=== PATIENT | male | born 1995 | race Caucasian/White ===

== ENCOUNTER 2018-04-18 18:30 | Emergency (ER) | payer SELFPAY ==
[2018-04-18 18:46] VITALS: BP 116/78; PULSE 87; RESP 16; TEMP 36.7; O2SAT 97
--- NOTE | 2018-04-18 19:10 | W.ED.GENAD ---
Discharge Plan Disposition Patient Disposition: HOME Condition: Stable Discharge Details Chief Complaint: Orthopedic Clinical Impression: Sprain of left shoulder Primary Care Provider: Alexander Lozano ED Provider: Brian Molina Home Meds and New Rx's Prescriptions: Continued epinephrine 0.3 MG/SYR auto-injector 0.3 mg IJ PRN PRNQty: 1 RF: 0 Discontinued cephalexin 500 MG capsule 500 mg PO QID 5 Days RF: 0 Discharge Instructions Instructions: Shoulder Sprain (ED), Shoulder Pain (ED) Additional Instructions: Please take 600 mg of ibuprofen with 650 of Tylenol every 6 hours as needed for discomfort. You may continue to use ice for 20 minutes on and at least 20 minutes off for the next 48 hours and slowly advance activity as tolerated by discomfort. If not improving over the next 2-4 weeks please call orthopedic office for arrangement of follow-up appointment Referrals: Mike Angulo MD [ [facility] STAFF PHYSICIAN] - Dagoberto Lisa MD [ [facility] STAFF PHYSICIAN] - Bakari Krishna MD [ [facility] STAFF PHYSICIAN] - Discharge Data Discharge Date/Time-TO BE ENTERED AT DEPARTURE: 04/18/18 19:28 Medical Decision Making Patient presenting to the emergency department for chief complaint of left shoulder pain. Patient states that he has been performing strenuous activities at work but today when he was going to lean under a vehicle and look at it he placed some weight on his arm and felt a pulling sensation in his shoulder. Patient states after this he had significant continued pain to his shoulder. Patient denies take any pain medication prior to arrival. Physical exam shows deltoid bursa and anterior shoulder tenderness with full range of motion. Patient does have elicited pain with overhead extension and posterior movement of the shoulder otherwise unremarkable exam. Concern for shoulder sprain. Given full range of motion of shoulder I do not feel that radiological imaging is needed or warranted at this time. Patient was encouraged to use ice, Tylenol Motrin, and rest the extremity with increased use of the extremity as tolerated by pain. Patient informed to call orthopedist in the next 2-4 weeks if not improving. After discussion of diagnosis and plan of care patient has no further needs, questions, or concerns and states clear understanding to return to the emergency department for any worsening symptoms. HPI General Mode of arrival: ambulatory. Date/Time Provider Initiated Documentation: 04/18/18 18:56. Limitations to Documentation: no limitations. Information obtained by: patient. History of Present Illness 22 year old M presents to the emergency department with the chief complaint of left shoulder pain, described as moderate, with intensity rated at 8. Quality is described as sharp, and is localized to the left and upper extremity. Patient started experiencing this hour(s) (2) and it has been constant. Movement worsens symptoms . Patient notes no other symptoms.. Patient did receive the following treatments prior to arrival, none Related Data Home Medications Medication Instructions Recorded Confirmed epinephrine 0.3 mg IJ PRN PRN #1 kit 03/29/15 03/09/17 Previous Rx's Medication Instructions Recorded epinephrine 0.3 mg IJ PRN PRN #1 kit 03/29/15 Allergies Allergy/AdvReac Type Severity Reaction Status Date / Time peanut Allergy Intermediate Hives Unverified 03/09/17 20:36 General Stated Complaint: Orthopedic ROSHAN: 4 Review of Systems Cardiovascular Denies syncope Musculoskeletal Reports as per HPI, Denies numbness and Denies tingling Integumentary/Breasts Denies rash, Denies sores and Denies wounds Neurologic Denies syncope, Denies numbness and Denies tingling PFSH Family History Mother Nephritis Urolithiasis Social History Smoking and Tabacco status: Current every day Exam Const General: cooperative and no acute distress Orientation: alert, awake and oriented x3 Resp Effort & Inspection: normal respiratory effort and able to speak in complete sentences Cardio Rate: regular rate Rhythm: regular rhythm Extrem Left upper extremity: normal capillary refill, shoulder/upper arm Details: tenderness Location: over the deltoid bursa, axillary nerve sensory function normal and abnormal ROM Details: pain with active ROM (Over the head and posterior extension) and with range as follows (Full range of motion); no ecchymosis, no crepitus and no deformity, elbow/forearm Details: normal to inspection and normal ROM; no tenderness, wrist Details: normal to inspection and normal ROM; no tenderness and hand Details: normal to inspection, normal capillary refill, neuromotor exam normal, neurosensory exam normal and tendon exam normal; no tenderness Course Vital Signs Temperature 36.7 C 04/18/18 18:46 Pulse 87 04/18/18 18:46 Respiratory Rate 16 04/18/18 18:46 Blood Pressure 116/78 04/18/18 18:46 Pulse Oximetry 97 04/18/18 18:46 Temperature 36.7 C 04/18/18 18:46 Temperature Source Temporal Artery Scan 04/18/18 18:46 Pulse 87 04/18/18 18:46 Respiratory Rate 16 04/18/18 18:46 Respiratory Effort 04/18/18 18:52 Blood Pressure 116/78 04/18/18 18:46 Blood Pressure Position Sitting 04/18/18 18:46 Pulse Oximetry 97 04/18/18 18:46 Oxygen Delivery Method Room Air 04/18/18 18:46 Oxygen Flow Rate 0 04/18/18 18:46 Pain Level 8 04/18/18 18:46
[2018-04-18] MEDS: Acetaminophen 325 MG TAB 650 MG PO (19:14)
[2018-04-18] MEDS: Ibuprofen 600 MG TAB PO (19:14)
== END 2018-04-18 19:28 | disposition home or self-care (01) ==
PROVIDERS: Emergency Provider Nurse Practitioner Family; PCP Pediatrics
DX: S93.402A Sprain of unspecified ligament of left ankle, initial encounter (principal); X50.1XXA Overexertion from prolonged static or awkward postures, initial encounter; Y99.0 Civilian activity done for income or pay
CPT/HCPCS: 99282

== ENCOUNTER 2018-07-09 21:19 | Emergency (ER) | payer SELFPAY ==
[2018-07-09 21:23] VITALS: BP 111/60; PULSE 82; RESP 18; TEMP 36.5; O2SAT 100
--- NOTE | 2018-07-09 21:38 | ED.GENADUL_ITS ---
Discharge Plan Disposition Patient Disposition: HOME Condition: Good Discharge Details Chief Complaint: Chest Pain Clinical Impression: Anxiety attack Primary Care Provider: None,None ED Provider: Daniel Martinez Meds and New Rx's Prescriptions: Continued epinephrine 0.3 MG/SYR auto-injector 0.3 mg IJ PRN PRNQty: 1 RF: 0 Discharge Instructions Instructions: Anxiety (ED) Additional Instructions: Your EKG, laboratory studies, x-rays are all normal. Suspect this was all related to anxiety. You should avoid illicit drugs in the future. Follow up with PCP which we help arrange. Return to ED for fever, shortness of breath, worse pain. Referrals: Care Management [Provider Group] Discharge Data Discharge Date/Time-TO BE ENTERED AT DEPARTURE: 07/10/18 02:17 Medical Decision Making Patient presenting with chest pain or shortness of breath. Suspect this is all anxiety related. Denies cocaine use recently. Thought he was using cocaine a couple days ago but found out it was bath salts. EKG is normal. Vital signs are normal. Patient is PERC negative. IV established and laboratory studies sent. Vistaril given orally for anxiety. Patient doing much better after the Vistaril. Chest x-ray is unremarkable. Labs are unremarkable other than low potassium which is replaced. First troponin negative. HEART score of one. Second troponin remains negative. Patient has been fine since the Vistaril. He does not have primary care. We will have care management work on helping him establish primary care. Return to ED for altered mental status, no worsening chest pain, worsening shortness of breath, other concerns. Lab Data Lab results reviewed: Yes I reviewed the patient's lab results. ECG Data Attestation: I personally reviewed and interpreted this ECG (s) as follows: Interpretation: Sinus rhythm at 76. Normal intervals and axis. No acute ST changes noted. HPI General Mode of arrival: ambulatory . Date/Time Provider Initiated Documentation: 07/09/18 21:26 . Limitations to Documentation: no limitations . Information obtained by: patient and RN notes reviewed . HPI Narrative: Patient presents to ED with complaint of chest pain or shortness of breath. Symptoms started about half hour prior to arrival. He is anxious. He has not had this previously. He denies drug use other than marijuana. He did use bath salts a couple days ago thinking it was cocaine but he has not actually used cocaine in a long time. He does report a history of anxiety and self medicates with marijuana. He denies fevers or cough. He denies abdominal pain or vomiting. He describes the chest pain as pressure. He is feeling a little lightheaded and tingly. Related Data Home Medications Medication Instructions Recorded Confirmed epinephrine 0.3 mg IJ PRN PRN #1 kit 03/29/15 03/09/17 Previous Rx's Medication Instructions Recorded epinephrine 0.3 mg IJ PRN PRN #1 kit 03/29/15 Allergies Allergy/AdvReac Type Severity Reaction Status Date / Time peanut Allergy Intermediate Hives Unverified 03/09/17 20:36 General Stated Complaint: Chest Pain ROSHAN: 2 Review of Systems Review of Systems 12/14 Review of Systems completed and is negative except as stated above in HPI (Systems reviewed: Const, Eyes, ENT, Resp, CV, GI, , MSK, Skin, Neuro) PFSH Surgical History S/P appendectomy (Inactive) Social History Smoking/Tobacco Use Status: Current every day Drug use: Daily Do you feel safe in your relationship?: Yes Exam Narrative Exam Narrative: Vitals: Normal. Const: WDWN male in NAD but anxious. HEENT: NC/AT. Normal facial exam. Eyes: Normal conjunctiva and sclera. Neck: Supple. Trachea midline. Lungs: Normal respiratory effort. Lungs are clear. Cor: RRR without murmur/gallop. Good radial pulses. GI: Soft. NT/ND. No guarding or rebound. Neuro: A+O x 3. CN grossly in tact. Good strength and no focal deficit. Ext: No C/C/E. No deformity or tenderness. No calf tenderness. Skin: Warm and dry without rash. Course Vital Signs Temperature 97.7 F 07/09/18 21:23 Pulse 82 07/09/18 21:23 Respiratory Rate 18 07/09/18 21:23 Blood Pressure 111/60 07/09/18 21:23 Pulse Oximetry 100 07/09/18 21:23 Temperature 97.7 F 07/09/18 21:23 Temperature Source Skin 07/09/18 21:23 Pulse 82 07/09/18 21:23 Respiratory Rate 18 07/09/18 21:23 Blood Pressure 111/60 07/09/18 21:23 Blood Pressure Position Supine 07/09/18 21:23 Pulse Oximetry 100 07/09/18 21:23 Oxygen Delivery Method Room Air 07/09/18 21:23 Oxygen Flow Rate 0 07/09/18 21:23 Pain Level 5 07/09/18 21:23
[2018-07-09 21:55] LABS: Abs Immature Grans 0.01 k/cumm (0.0-0.09); Absolute Basophil Count 0.02 k/cumm (0.0-0.2); Absolute Eosinophil Count 0.15 k/cumm (0.0-0.7); Absolute Lymphocyte Count 4.11 k/cumm (1.2-3.4); Absolute Monocyte Count 0.86 k/cumm (0.11-0.7); Basophils % 0.2; Eosinophils % 1.9; HCT 42.4 % (40.0-50.0); HGB 14.5 g/dL (13.5-17.5); Immature Grans % 0.1; Lymphocytes % 51.1; Mean Corp. HGB Concentration 34.2 g/dL (32.0-36.0); Mean Corpuscular Hemoglobin 32.8 pg (27.0-33.0); Mean Corpuscular Volume 95.9 fL (80-95); Mean Platelet Volume 9.2 fL (8.0-11.0); Monocytes % 10.7; Platelet Count 223 x1000/uL (130-400); RBC 4.42 m/cumm (4.50-6.00); RBC Distribution Width 12.7 % (11.8-14.1); White Blood Cell Count 8.05 k/cumm (4.4-10.8)
--- NOTE | 2018-07-09 22:00 | DI.RAD_ITS ---
SYMPTOM/DIAGNOSIS: CHEST PAIN PA AND LATERAL CHEST: 07/09 There is a mild bi-convex thoracolumbar scoliosis. The heart is not enlarged. The lungs are clear and well expanded. No pleural effusion seen. CONCLUSION: No evidence of acute disease.
--- NOTE | 2018-07-09 22:15 | DI.VRAD_ITS ---
EXAM: XR Chest, 2 Views EXAM DATE/TIME: 07/09/2018 9:46 PM CLINICAL HISTORY: 23 years old, male; Chest pain TECHNIQUE: Imaging protocol: XR of the chest, 2 views. COMPARISON: CR CHEST ONE VIEW IN RAD DEPT 07/29/2013 6:46 PM FINDINGS: Lungs: Unremarkable. No consolidation. Pleural space: Unremarkable. No evidence of pneumothorax. Heart/Mediastinum: Unremarkable. Heart size within normal limits for technique. Bones/joints: Unremarkable. IMPRESSION: No acute findings. Dictated and Authenticated by: Pb Petersen MD. Ordering:ARIE Sanchez MD
[2018-07-09] MEDS: hydrOXYzine PAMOATE 25 MG CAP PO (22:16)
[2018-07-09 22:20] LABS: ALT 25 U/L (12-78); AST 19 U/L (15-37); Albumin 3.8 g/dL (3.4-5.0); Alkaline Phosphatase 63 U/L (46-116); Anion Gap 11.6 mmol/L (3-11); BUN 16 mg/dL (7-18); Bilirubin, Total 0.9 mg/dL (0.2-1.0); CO2 26.4 mmol/L (21.0-32.0); CREATININE 1.17 mg/dL (0.70-1.30); Chloride 99 mmol/L (98-107); Glucose 134 mg/dL (70-100); Potassium 3.1 mmol/L (3.5-5.1); Sodium 137 mmol/L (136-145); Total Protein 7.3 g/dL (6.4-8.2)
[2018-07-09 22:29] LABS: Troponin I < 0.02 ng/mL (0.00-0.06)
[2018-07-09] MEDS: Potassium Chloride 20 MEQ TABCR 40 MEQ PO (23:37)
[2018-07-10] VITALS (10 sets, daily range): BP systolic 104; BP diastolic 65; PULSE 58–75; RESP 14–18; O2SAT 97–99
[2018-07-10 01:07] LABS: Troponin I < 0.02 ng/mL (0.00-0.06)
--- NOTE | 2018-07-10 08:14 | PDOC.ERCMPRO ---
Care Management Progress Note 07/10-Dr. Martinez requested assistance with helping Harjit with a PCP. Patient used to see [facility]. Dr. Barrientos overhead distribution engineer. Referral faxed to [facility] this am.
--- NOTE | 2018-07-10 08:15 | CMPROGNOTE_ITS ---
Care Management Progress Note 07/10-Dr. Martinez requested assistance with helping Harjit with a PCP. Patient used to see [facility]. Dr. Barrientos senior information security analyst. Referral faxed to [facility] this am.
== END 2018-07-10 02:17 | disposition home or self-care (01) ==
PROVIDERS: Emergency Provider Emergency Medicine
DX: F15.10 Other stimulant abuse, uncomplicated (principal); F41.9 Anxiety disorder, unspecified; E87.6 Hypokalemia; R06.02 Shortness of breath
CPT/HCPCS: 36415; 80053; 93005; 99285; 71046; 83735; 84484; 85025; 93010; 99284

== ENCOUNTER 2020-11-23 20:21 | Emergency (ER) | payer SELFPAY ==
[2020-11-23 20:26] VITALS: BP 117/74; PULSE 88; RESP 18; TEMP 36.6; O2SAT 97
--- NOTE | 2020-11-23 21:00 | ED.GENADUL_ITS ---
Discharge Plan Disposition Patient Disposition: HOME Condition: Stable Discharge Details Clinical Impression: Laceration of right wrist Primary Care Provider: None,None ED Provider: Mima Robertson Home Meds and New Rx's Prescriptions: No Action epinephrine 0.3 MG/SYR auto-injector 0.3 mg IJ PRN PRNQty: 1 RF: 0 Discharge Instructions Instructions: Laceration (ED), Skin Adhesive Care (ED) Additional Instructions: Do not soak. Do not pick at tissue adhesive. It will fall off in approximately 4 to 6 days on its own. Keep clean and dry. Allowed to air dry. Return to the ER or be seen sooner for any increased redness, swelling, red streaks, drainage or any concerns for infection. Please take Tylenol or Ibuprofen with food every 4-6 hours as needed for pain and swelling. Follow up with primary care provider in 3-5 days. Return to ED sooner if any worsening or concerns. Increase oral fluids. Stand Alone Forms: Work Release Referrals: Erika Chakraborty [Emergency Nurse] - Return if symptoms worsen Medical Decision Making 25-year-old male presents to the ER chief complaint of right medial wrist laceration. 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 There is a small 0.5 cm laceration noted. No bleeding. Full range of motion of his right wrist. Full flexion extension etc. He is last tetanus shot was 6 years ago. Offered x-ray which he declined at this time. Wound was cleaned with chlorhexidine surgical scrub. Dermabond applied. Patient instructed on use. HPI General Mode of arrival: ambulatory . Date/Time Provider Initiated Documentation: 11/23/20 20:49 . Limitations to Documentation: no limitations . Information obtained by: patient and RN notes reviewed . HPI Narrative: 25-year-old male presents to the ER chief complaint of right medial wrist laceration. 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 There is a small 0.5 cm laceration noted. No bleeding. Full range of motion of his right wrist. Full flexion extension etc. He is last tetanus shot was 6 years ago. Offered x-ray which he declined at this ti me. Wound was cleaned with chlorhexidine surgical scrub. Dermabond applied. Patient instructed on use. Related Data Home Medications Medication Instructions Recorded Confirmed epinephrine 0.3 mg IJ PRN PRN #1 kit 03/29/15 11/23/20 Previous Rx's Medication Instructions Recorded epinephrine 0.3 mg IJ PRN PRN #1 kit 03/29/15 Allergies Allergy/AdvReac Type Severity Reaction Status Date / Time No Known Allergies Allergy Unverified 11/23/20 20:31 General Stated Complaint: Laceration ROSHAN: 4 Review of Systems Narrative: All systems reviewed & are unremarkable except as noted in HPI and below Musculoskeletal Musculoskeletal: Reports as per HPI and Denies deformity PFSH Surgical History S/P appendectomy Family History Mother Nephritis with Urolithiasis Social History Smoking/Tobacco Use Status: Current every day Smoking risk assessment performed?: Yes Alcohol Intake: never Drug use: Daily Substance use type: marijuana Do you feel safe at home: Yes Do you feel safe in your relationship?: Yes Exam Extrem Right upper extremity: wrist Details: laceration (Right medial wrist. No bleeding) Hand/finger images: 1. 0.5 cm laceration superficial bleeding controlled. Course Vital Signs Vital signs: Vital Signs Temperature 36.6 C 11/23/20 20:26 Pulse 88 11/23/20 20:26 Respiratory Rate 18 11/23/20 20:26 Blood Pressure 117/74 11/23/20 20:26 Pulse Oximetry 97 11/23/20 20:26 Temperature 36.6 C 11/23/20 20:26 Temperature Source Tympanic 11/23/20 20:26 Pulse 88 11/23/20 20:26 Respiratory Rate 18 11/23/20 20:26 Respiratory Effort Non-Labored 11/23/20 20:32 Blood Pressure 117/74 11/23/20 20:26 Blood Pressure Position Sitting 11/23/20 20:26 Pulse Oximetry 97 11/23/20 20:26 Oxygen Delivery Method Room Air 11/23/20 20:26 Oxygen Flow Rate 0 11/23/20 20:26 Pain Level 2 11/23/20 20:39
== END 2020-11-23 21:25 | disposition home or self-care (01) ==
PROVIDERS: Emergency Provider Registered Nurse Emergency
DX: S61.511A Laceration without foreign body of right wrist, initial encounter (principal); W31.89XA Contact with other specified machinery, initial encounter
CPT/HCPCS: 12001

== ENCOUNTER 2022-01-11 07:17 | Day surgery (SDC) | payer OTHER, SELFPAY ==
[2022-01-11] VITALS (10 sets, daily range): BP systolic 104–121; BP diastolic 52–82; PULSE 54–97; RESP 15–21; TEMP 36.2–36.6; O2SAT 97–100; BMI 19.8
--- NOTE | 2022-01-11 05:12 | ANES.PREOP_ITS ---
General Info Date of Service Date Performed: 01/11/22 Height: 6 ft 3 in Weight: 71.758 kg Body Mass Index (BMI): 19.8 Surgical Procedure: Operation Date: 01/11/22 09:10 Proposed Procedure Side Surgeon p Herniorrhaphy Inguinal w/Mesh Bilateral David Ramos MD Meds Allergies and Home Medications Allergies Allergy/AdvReac Type Severity Reaction Status Date / Time peanut Allergy Severe Anaphylaxis Verified 01/11/22 07:41 Home Medication Medication Instructions Recorded epinephrine 0.3 mg/0.3 mL 0.3 mg (0.3 mL) IJ PRN PRN ##1 03/29/15 injection, auto-injector Current Visit Medications: Current Medications Generic Name Dose Route Start Last Admin Trade Name Freq PRN Reason Stop Dose Admin Acetaminophen 1,000 mg 01/11/22 06:00 Acetaminophen 500 Mg Tab PO 02/09/22 23:59 PREOP CELIO Celecoxib 200 mg 01/11/22 06:00 Celecoxib 200 Mg Cap PO 02/09/22 23:59 PREOP CELIO Gabapentin 600 mg 01/11/22 06:00 Gabapentin 300 Mg Cap PO 02/09/22 23:59 PREOP CELIO Ringer's Solution 1,000 mls @ 80 mls/hr 01/11/22 06:00 IV 02/09/22 23:59 INFUSION PENDING SALE TO [facility] IV Miscellaneous Supplies 1 each 01/11/22 06:00 Iv Access IV 02/09/22 23:59 DIRECTED CELIO Sodium Chloride 0 ml 01/11/22 06:00 Normal Saline Flush 10 Ml Syr IV 02/09/22 23:59 PRN PRN Sodium Chloride 0 ml 01/11/22 06:00 Normal Saline 10 Ml Vial IJ 02/09/22 23:59 DIRECTED PRN Sterile Water 0 ml 01/11/22 06:00 Water,Injection,Sterile 10 Ml Vial IJ 02/09/22 23:59 DIRECTED PRN PFSH Active Problems Active Problems: Problem Status Onset Code Laceration of left lower extremity S81.812A Laceration of right wrist S61.511A Left groin pain R10.32 Marijuana use F12.90 Smokes tobacco daily F17.200 Bilateral inguinal hernia K40.20 Medical History Medical History Bilateral inguinal hernia Medical History Comments:: Daily marijauna use Surgical History Surgical History (Updated 01/11/22 @ 07:41 by Pilar Victoria) H/O wisdom tooth extraction Hx of hand surgery left finger cut down to bone; repaired S/P appendectomy Tobacco Smoking/Tobacco Use Status: Current every day Tobacco Type: cigarettes Alcohol Alcohol Intake: never Substance Use Substance use: Daily Substance use type: marijuana Vital Signs and Lab Results Vital Signs Most Recent Vital Signs in EMR: Temp Pulse Resp BP Pulse Ox 36.6 C 58 L 16 112/60 99 01/11/22 07:42 01/11/22 07:42 01/11/22 07:42 01/11/22 07:42 01/11/22 07:42 Lab Results Blood Type / Crossmatch: No Data to Display Complete Blood Count: No Data to Display Complete Metabolic Panel: No Data to Display Liver Function Panel: No Data to Display Coagulation Panel: No Data to Display Cardiac Panel: No Data to Display Arterial Blood Gas: No Data to Display Venous Blood Gas: No Data to Display Pancreas Panel: No Data to Display Thyroid Panel: No Data to Display Infectious Disease: No Data to Display Blood Cultures: No Data to Display Toxicology Panel: No Data to Display Anesthesia Assessment and Plan Anesthesia History Personal History: No History of Anesthesia Complications Family History: No Family History of Anesthesia Complications Exercise Tolerance Exercise Tolerance: Metabolic Equivalents>4 Pertinent Negatives Pertinent Negatives: No Symptoms of GERD Cardiac & Pulmonary Exam Cardiac Exam: Normal S1/S2 Heart Sounds Pulmonary Exam: Clear Bilateral Breath Sounds Implantable Cardiac Device Does patient have a Pacemaker or an ICD?: No Airway Exam Known Difficult Airway: No Mallampati Class: 3 Mouth Opening: Narrow (< 3cm) Thyromental Distance: Greater than 3 cm Neck Range of Motion: Full ROM Neck Circumference: Normal Teeth Condition: Normal Dentition and Loose or Chipped (chipped fronts, and scattered chips. ) ASA Classification ASA Score: ASA 2 Emergency Case?: No NPO Status NPO Status: NPO Clears >2 hours, Solids >8 hours Anesthesia Plan Resuscitation Status: Full Code Anesthesia Technique: General Anesthesia Airway Planned: LMA Pain Management: Surgeon and patient request nerve block Monitors Used: Standard Monitors Preoperative Comments:: 26 yo male for bilateral inguinal hernia repair. Sig PMHx: daily cannabis/tobacco, previous facial fractures (no jaw, nose involvment per him, but right eye messed up due to it).
--- NOTE | 2022-01-11 05:46 | PDOC.DSDIS_ITS ---
Date of service: 01/11/22 Time of Service: 11:05 Discharge Plan Disposition Patient Disposition: HOME Condition: Good Discharge Details Reason For Visit: Bilateral inguinal hernia repair Attending Provider: David Ramos Primary Care Provider: Magdalene Enciso Home Meds and New Rx's Prescriptions: New tramadol 50 mg tablet 50 mg PO BID PRN (Reason: pain) Qty: 9 0RF Rx Instructions: Take 1 tablet by mouth as needed for severe pain. Be very careful as this medication is addictive. Continued epinephrine 0.3 MG/SYR auto-injector 0.3 mg IJ PRN PRNQty: 1 0RF Discharge Instructions Instructions: Inguinal Hernia Repair (DC) Additional Instructions: 1. Resume all of your medications. 2. Okay to use tylenol and ibuprofen over the counter as needed. 3. Use tramadol as needed for severe pain. 4. Leave bandage in place for 24 hours, then remove. 5. Shower with warm soapy water. Pat dry. Use a bandaid if needed to protect your clothing. 6. No soaking or tub baths until I see you in the office. 7. No heavy lifting until I see you in the office. 8.Call the office (or go directly to the emergency room after hours) if you notice any of the following: Develop chills (warm to touch), or if you have a thermometer and your temperature is above 101 Difficulty breathing or difficultly swallowing Persistent vomiting Any bleeding ? exceeding one tablespoon 6. Call your physician if the site where your intravenous was started becomes red, swollen, painful, and warm to touch. Referrals: David Ramos MD [ [facility] STAFF PHYSICIAN] - (10-14 days routine follow up) Activity:: Activity as Tolerated Remove Dressings/Wound Care:: 24 hours Shower/Bathe:: 24 hours Diet:: As Tolerated Discharge Orders Discharge Orders: Discharge Order (Routine); Ordered 01/11/22 Ordered By: David Ramos DS: Diagnosis Discharge Diagnosis (1) Bilateral inguinal hernia: Asessment and Plan: Bilateral inguinal herniorrpahy with mesh
--- NOTE | 2022-01-11 05:50 | W.PM.OP ---
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 Procedure Description: Next, after induction of general anesthesia, the anesthesia specialist for bilateral inguinal blocks. The surgical site was then prepped and draped in the usual fashion. I began by making an oblique incision over the right region. I dissected down through the skin to the deep fascia. Next, I incised the fascia along the length of the inguinal canal to the external ring. I then carefully identified the ilioinguinal nerve. Once this was complete, I bluntly dissected the shelving edge of the inguinal ligament down towards the pubic tubercle. Here, I encircled all cord structures with a [place] drain. Next, I began dissecting the specific cord structures. Great care was taken to spare the vas deferens and the blood supply to the testicle. Next, I isolated the hernia sac from the other inguinal structures. Hernia sac was quite small on the right side. I reduced it back to its normal anatomic position. I then used a perfix lite medium mesh plug to obliterate the defect at the internal ring. I fixed in place with interrupted Prolene stitches. Next, I buttressed the posterior floor of the inguinal canal with a large mesh patch. I started by fixing it to the pubic tubercle. Next, I used Prolene sutures to affix it to the shelving edge of the inguinal ligament and the conjoined tendon. Laterally I tacked it to the transversalis fascia and reconstructed an internal ring without any strain on the cord structures. Once this was complete, I irrigated the surgical field. It appeared hemostatic. I then closed the anterior portion of the fascia to reconstruct the front wall of the inguinal canal. I did this with interrupted Vicryl stitches. Once again, I irrigated the surgical field and inspected for hemostasis. Finally, I approximated the superficial fascia and the deep layers of the skin with absorbable suture. Skin was closed with a running subcuticular stitch. Next, I turned my attention to the patient's left side. Similar to the right side, I made an oblique incision over the left groin. I dissected down to the fascia and incised along the inguinal canal. In a fashion identical to the right side, I carefully dissected the ilioinguinal nerve, and cord structures. Using a Mary drain, elevated the cord and began dissecting the inguinal sac. It was a little bit larger on this left side. I dissected down to the internal ring, and reduced the hernia sac into the peritoneal cavity. I then obliterated the defect with another PerFix light medium mesh plug. Then, I affixed the mesh patch to the pubic tubercle and sutured in place along the shelving edge of the inguinal ligament up and around to the conjoined tendon to the pubic tubercle. I irrigated the field. I allowed the cord structures to return to their normal position. I closed the overlying fascia with running Vicryl stitches. I then irrigated the surgical field, and closed the skin with running subcuticular stitches. Bandages were applied, the patient was awakened and transferred to the recovery unit.
[2022-01-11] MEDS: Gabapentin 300 MG CAP 600 MG PO (08:02)
[2022-01-11] MEDS: Celecoxib 200 MG CAP PO (08:02)
[2022-01-11] MEDS: Acetaminophen 500 MG TAB 1000 MG PO (08:02)
[2022-01-11] MEDS: Lactated Ringers 1,000 ML 80 ML IV (08:15)
--- NOTE | 2022-01-11 08:21 | W.ANESNERVE ---
Nerve Block Single Injection Procedure Date and Time Date Performed: 01/11/22 Procedure Start: 09:34 Location Where Procedure Performed Procedure Location: Operating Room Procedure Stop: 09:42 Reason Performed: Postoperative Analgesia Requesting Provider: David Ramos Timeout Performed Timeout Performed: Yes Monitoring Used ECG, Blood Pressure, SpO2 and ETCO2 Sterility Sterility: Hand Hygiene, Surgical Cap, Surgical Mask, Sterile Gloves and Chlorhexidine Sedation Given During Procedure Sedation Given (Indicate Dose Given): No Sedation given Patient Mental Status Patient Mental Status: Performed under general anesthesia Nerve Block 1st Nerve Block: Laterality: Bilateral Block Type: TAP Bilateral Needle / Catheter Used: 100mm SonoPlex II Local Anesthetic Bolus (Indicate Dose Given): Half of Total block solution given into each side and Bupivacaine 0.375% Dose:: 30 mL Additives (Indicate Dose Given): Epinephrine to make 1:400,000 (2.5mcg/ml) Dose:: 75 mcg and Precedex Dose:: 50 mcg Ultrasound: Sterile probe cover and gel used Ultrasound Image Saved?: Yes Nerve Stimulator: Not Used Paresthesia: None Procedure Tolerated: No Complications Procedure Outcome: Successful Performed By: Toby Lobo
[2022-01-11] MEDS: ceFAZolin 2 GM/50 ML BAG IVPB (09:27)
[2022-01-11] MEDS: Bupivacaine 0.25% Pres-Free 30 ML VIAL (09:59)
--- NOTE | 2022-01-11 11:24 | W.ANESPOSTOP ---
Postoperative Evaluation Date, Time and Location Date Performed: 01/11/22 Time Performed: 11:24 Patient Location: Day Surgery Unit Vital Signs Most Recent Imported Vital Signs: Most Recent Vital Signs Temp Pulse Resp BP Pulse Ox 36.6 C 55 L 18 118/71 99 01/11/22 11:20 01/11/22 11:20 01/11/22 11:20 01/11/22 11:20 01/11/22 11:20 Pain Score Most Recent Pain Score: Most Recent Pain Score Pain Level 0 01/11/22 11:20 Assessment Mental Status: Awake (Alert & Oriented to Patient Baseline) Airway and Respiratory Function: Patent airway with normal (patient baseline) respiratory exam Cardiovascular Function: Hemodynamically Stable Hydration Status: Adequately Hydrated Nausea & Vomiting: No Nausea or Vomiting Pain: Pain is tolerable per patient Peripheral Nerve Block: Patient did not receive a nerve block
== END 2022-01-11 13:10 | disposition home or self-care (01) ==
PROVIDERS: PCP Nurse Practitioner Family; Visit Provider Surgery
PROC: (CPT 49505; principal; 2022-01-11 09:00)
DX: K40.20 Bilateral inguinal hernia, without obstruction or gangrene, not specified as recurrent (principal); F12.90 Cannabis use, unspecified, uncomplicated; F17.210 Nicotine dependence, cigarettes, uncomplicated
CPT/HCPCS: 49505; 76942; C1781; J0171; J0690; J1100; J2405; J2704; J3475

== ENCOUNTER 2022-02-06 16:21 | Outpatient (REF) | payer SELFPAY | END 2022-02-06 16:22 | disposition home or self-care (01) | LOC: LBN 16:21 | PROVIDERS: PCP Nurse Practitioner Family; Visit Provider Physician Assistant Medical | DX: J02.9 Acute pharyngitis, unspecified (principal) | CPT/HCPCS: 87081 ==

== ENCOUNTER 2022-04-06 20:40 | Emergency (ER) | payer SELFPAY ==
--- NOTE | 2022-04-06 20:30 | DI.RAD_ITS ---
Exam(s) XR WRIST RT COMPLETE EXAM: XR WRIST RT COMPLETE CLINICAL HISTORY: distal radius pain. TECHNIQUE: 2D digital imaging was performed of the right wrist. Three views were obtained. PA, lat eral and oblique views were obtained. COMPARISON: No exams were available for comparison FINDINGS: BONES: No acute fracture is present. No bony destructive lesion is seen. JOINTS: The carpal bones are normally aligned. SOFT TISSUE: Normal. IMPRESSION: Unremarkable radiographs of the right wrist. DATA REPOSITORY: RADIATION DOSE DELIVERED:
[2022-04-06 20:41] VITALS: BP 146/75; PULSE 81; RESP 22; TEMP 36.6; O2SAT 100
[2022-04-06] MEDS: Fluorescein STRIPS 100/BOX 1 MG (20:52)
[2022-04-06] MEDS: Erythromycin Ophth Oint 3.5 GM TUBE OS (20:54)
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
[2022-04-06 21:50] VITALS: BP 126/71; PULSE 88; RESP 18; TEMP 37; O2SAT 98
== END 2022-04-06 21:56 | disposition home or self-care (01) ==
LOC: ER 22:28
PROVIDERS: Emergency Provider Student in an Organized Health Care Education/Training Program; PCP Nurse Practitioner Family
DX: S05.02XA Injury of conjunctiva and corneal abrasion without foreign body, left eye, initial encounter (principal); S05.01XA Injury of conjunctiva and corneal abrasion without foreign body, right eye, initial encounter; S63.501A Unspecified sprain of right wrist, initial encounter; V89.2XXA Person injured in unspecified motor-vehicle accident, traffic, initial encounter
CPT/HCPCS: 99283; 73110; 99284

== ENCOUNTER 2022-05-16 01:03 | Outpatient (CLI) | payer SELFPAY ==
--- NOTE | 2022-05-16 | DI.RAD_ITS ---
Exam(s) XR WRIST RT COMPL NAVICULAR EXAM: XR WRIST RT COMPL NAVICULAR CLINICAL HISTORY: RT WRIST PAIN, M25.531. TECHNIQUE: 2D digital imaging was performed. Three views. COMPARISON: CR,XR XR WRIST RT COMPLETE from 04/06/2022 FINDINGS: BONES: No acute fracture is present. No bony destructive lesion is seen. JOINTS: The carpal bones are normally aligned. SOFT TISSUE: Normal. IMPRESSION: Unremarkable radiographs of the right wrist. DATA REPOSITORY: RADIATION DOSE DELIVERED:
== END 2022-05-16 01:23 ==
LOC: DI 01:04
PROVIDERS: PCP Nurse Practitioner Family; Visit Provider Family Medicine
DX: M25.531 Pain in right wrist (principal)
CPT/HCPCS: 73110

== ENCOUNTER 2022-07-02 12:38 | Emergency (ER) | payer SELFPAY ==
[2022-07-02] VITALS (20 sets, daily range): BP systolic 114–127; BP diastolic 78–95; PULSE 42–74; RESP 13–21; TEMP 36.8; O2SAT 98–100
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
--- NOTE | 2022-07-02 13:30 | RT.EKG_ITS ---
APPROVED REPORT Exam: Resting ECG Reason for Exam: substernal chest pain Patient Location: E HR:54 bpm ECG Measurements Heart Rate 54 AXIS CO 144 P -2 QRSd 94 QRS -24 QT 433 T 0 QTc 411 Conclusion Sinus bradycardia...rate< 60. Sinus. Left axis. No STEMI. I have reviewed and interpreted ECG and agree with software generated interpretation.
[2022-07-02] MEDS: ACETAMINOPHEN 1,000 MG/100 ML BTL 400 MG IVPB (13:50)
[2022-07-02] MEDS: Normal Saline 1,000 ML 1000 ML IV (13:50)
[2022-07-02 13:54] LABS: Abs Immature Grans 0.05 10^3/uL (0.0-0.06); Absolute Basophil Count 0.03 10^3/uL (0.0-0.2); Absolute Eosinophil Count 0.09 10^3/uL (0.0-0.7); Absolute Lymphocyte Count 2.58 10^3/uL (1.2-3.4); Absolute Monocyte Count 0.86 10^3/uL (0.1-0.8); Absolute Neutrophil Count 10.56 10^3/uL (1.2-6.7); Basophils % 0.2; Eosinophils % 0.6; HCT 41.3 % (40.0-50.0); HGB 13.8 g/dL (13.5-17.5); Immature Grans % 0.4; Lymphocytes % 18.2; MCH 31.7 pg (27.0-33.0); MCHC 33.4 % (32.0-36.0); MCV 95 fL (80-95); MPV 8.9 fL (8.0-11.0); Monocytes % 6.1; Neutrophils % 74.5; Platelet Count 231 10^3/uL (130-400); RBC 4.35 10^6/uL (4.36-5.78); RDW 11.5 % (11.8-14.1); RDW-SD 40.5 fL; WBC 14.17 10^3/uL (4.4-10.8)
[2022-07-02] MEDS: Normal Saline - Diluent 50 ML VIAL IV (14:10)
[2022-07-02 14:12] LABS: ALT 28 U/L (16-63); AST 18 U/L (15-37); Albumin 3.9 g/dL (3.4-5.0); Alkaline Phosphatase 74 U/L (46-116); Anion Gap 7.6 mmol/L (3-11); BUN 13 mg/dL (7-18); Bilirubin, Total 0.6 mg/dL (0.2-1.0); CO2 27.4 mmol/L (21.0-32.0); Calcium 9.3 mg/dL (8.5-10.1); Chloride 106 mmol/L (98-107); Estimated GFR 107.12 (mL/min/1.73m2); Glucose 90 mg/dL (74-106); Lipase 16 U/L (16-77); Sodium 141 mmol/L (136-145); Total Protein 7.8 g/dL (6.4-8.2); Troponin I < 50 ng/L (<or=60)
[2022-07-02] MEDS: Omnipaque 350 MG/ML 500 ML BTL-Imaging package 100 ML IJ (14:13)
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
== END 2022-07-02 17:00 | disposition home or self-care (01) ==
PROVIDERS: Emergency Provider Physician Assistant; PCP Nurse Practitioner Family
DX: S22.20XA Unspecified fracture of sternum, initial encounter for closed fracture (principal); W22.8XXA Striking against or struck by other objects, initial encounter
CPT/HCPCS: 71275; 80053; 83690; 93005; 96361; 96365; 99285; 83735; 84484; 85025; 93010; 99284; J0131

== ENCOUNTER 2024-01-04 09:38 | Emergency (ER) | payer SELFPAY ==
[2024-01-04 09:43] VITALS: BP 103/52; PULSE 45; RESP 16; TEMP 36.9; O2SAT 100
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
--- NOTE | 2024-01-04 09:51 | W.ED.GENAD ---
Discharge Plan Disposition Patient Disposition: Home Condition: Good Discharge Details Clinical Impression: Laceration of finger of left hand, Open displaced fracture of distal phalanx of little finger Primary Care Provider: Magdalene Enciso ED Provider: Patricio Watkins Home Meds and New Rx's Prescriptions: New cephalexin 500 mg capsule 500 mg PO QID 7 Days Qty: 28 0RF No Action epinephrine 0.3 MG/SYR auto-injector 0.3 mg IJ PRN PRNQty: 1 0RF Discharge Instructions Instructions: Finger fracture, Finger Fracture ED Additional Instructions: At this time your lacerations have been sutured. Please keep the area clean and dry. Monitor closely for any redness, drainage or discharge. For nonabsorbable sutures, please return in 7 to 10 days to have the wound reassessed and the sutures removed. If you come back to the emergency department here it will be free of charge for the suture removal. For long-term scar cosmesis, please make sure to avoid any sun to the area for the next year. Apply moisturizer or vitamin E to the area twice daily for the next 12 months for the best chance of wound/scar medication. Please take a daily multivitamin as well as this can help in wound healing. Your finger is fractured as well. Please take Tylenol and Motrin as needed for pain. Because of the nature of the fracture there is a chance that there may be need for surgical management in the future. Please follow-up closely with orthopedics. Please leave the splint on at all times otherwise. If you notice any worsening of your symptoms, or any new symptoms such as vomiting, diarrhea, fever, chills, shortness of breath, chest pain, numbness, weakness, or fainting , please return immediately to the emergency department for reevaluation. Please follow up with your primary care provider as soon as possible for reassessment and reevaluation. As always, it was a pleasure participating in your medical care today. Referrals: Jose Curran MD [ [facility] STAFF PHYSICIAN] - Bakari Krishna MD [ [facility]FF PHYSICIAN] - Magdalene Enciso [Primary Care Provider] - HPI General Date/Time Provider Initiated Documentation: 01/04/24 09:39. 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 Patient states that about an hour ago he was moving a 150 pounds stone when it slipped and landed just distal to the MCP joint on his left hand. It crushed his fingers underneath, and he was able to get it off momentarily after the initial injury. He is coming for further assessment. He admits to pain at the base of his fingers on the left hand, he denies any new numbness or tingling. He denies any injury to any other areas. He did not hit his head, the rest of his arm, or any other extremities. Tetanus was updated 9 years ago. No other complaints at this time. Related Data Home Medications ?Medication ?Instructions ?Recorded ?Confirmed epinephrine 0.3 mg/0.3 mL 0.3 mg (0.3 mL) IJ PRN PRN ##1 03/29/15 01/04/24 injection, auto-injector cephalexin 500 mg capsule 500 mg PO QID 7 days #28 caps 01/04/24 Previous Rx's ?Medication ?Instructions ?Recorded epinephrine 0.3 mg/0.3 mL 0.3 mg (0.3 mL) IJ PRN PRN ##1 03/29/15 injection, auto-injector cephalexin 500 mg capsule 500 mg PO QID 7 days #28 caps 01/04/24 Allergies Allergy/AdvReac Type Severity Reaction Status Date / Time peanut Allergy Severe Anaphylaxis Verified 07/02/22 12:46 General Stated Complaint: Laceration ROSHAN: 3 Review of Systems All systems reviewed & are unremarkable except as noted in HPI and below Exam Narrative Exam Narrative: 1.Const: Well-nourished, Well-developed, appearing stated age 2.Eyes: PERRL, no conjunctival injection, and symmetrical lids. 3.ENT: Atraumatic external nose and ears. Moist MM. Neck: Symmetric, trachea midline, No thyromegaly. 4.CVS: +S1/S2, Peripheral pulses 2+ and equal in all extremities. Brisk capillary refill in all extremities. 5.RESP: Unlabored respiratory effort. Clear to auscultation bilaterally. No wheezes rales or rhonchi 6.GI: Soft, Nontender/Nondistended, No hepatosplenomegaly. No guarding or rebound. 7.MSK: Left hand demonstrates a 1.5 cm laceration at the proximal phalanx on the palmar aspect of the middle finger, small superficial excoriation at the MCP joint of the ring finger on the palmar side, and a small 7 to 8 mm laceration over the palmar aspect at the MCP joint on the fifth digit. Symmetrically palpable radial and ulnar pulses. Capillary refill less than 2 seconds to all digits. Intact sensation to light touch of the radial, median and ulnar nerves demonstrated by testing in the dorsal web space of the thumb, the distal palmar aspect of the index finger, and the lateral surface of the fifth finger. 2 point discrimination intact to 5mm (up to 6mm can be normal in digits 3-5) of discrimination in the affected digit. Intact motor function of the radial, median and ulnar nerves demonstrated by strength of extension of the isolated distal joint of the index finger, hand auto body mechanic, and spreading of the 2nd through 5th digits. However flexion and extension is slightly limited secondary to pain with these movements. Intact recurrent median nerve as demonstrated by ability to move thumb fully through opposition, abduction and flexion. No snuffbox tenderness. 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 Sensation grossly intact, no focal neurologic deficits. 10.Psych: (AAO) x3. Appropriate mood and affect Course Vital Signs Vital signs: Vital Signs Temperature 36.9 C 01/04/24 09:43 Pulse 45 L 01/04/24 09:43 Respiratory Rate 16 01/04/24 09:43 Blood Pressure 103/52 L 01/04/24 09:43 Pulse Oximetry 100 01/04/24 09:43 Temperature 36.9 C 01/04/24 09:43 Pulse 45 L 01/04/24 09:43 Respiratory Rate 16 01/04/24 09:43 Blood Pressure 103/52 L 01/04/24 09:43 Pulse Oximetry 100 01/04/24 09:43 Pain Level 9 01/04/24 09:43 Procedures Laceration Laceration 1: Site: hand (Middle finger) Side (If applicable): left Size (cm): 1.5 Description: linear Depth: simple, single layer Local anesthetic: Lidocaine 1% Amount of anesthesia used (mL): 3 Pre-repair: wound explored, irrigated extensively and deep structures intact Skin layer closed with: nylon Size (cm): 5-0 Number of sutures: 5 Technique: simple, interrupted Laceration 2: Site: hand (Ring finger) Side (If applicable): left Size (cm): 1 Description: linear Depth: simple, single layer Local anesthetic: Lidocaine 1% Amount of anesthesia used (mL): 3 Pre-repair: wound explored, irrigated extensively and deep structures intact Skin layer closed with: nylon Size (cm): 5-0 Number of sutures: 2 Technique: simple, interrupted Laceration 3: Site: hand (Pinky finger) Side (If applicable): left Size (cm): 1 Description: linear Depth: simple, single layer Local anesthetic: Lidocaine 1% Amount of anesthesia used (mL): 2 Pre-repair: wound explored, irrigated extensively and deep structures intact Skin layer closed with: nylon Size (cm): 5-0 Number of sutures: 2 Technique: simple, interrupted Medical Decision Making This is a pleasant 28-year-old male who is [id number] 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 Patient states that about an hour ago he was moving a 150 pounds stone when it slipped and landed just distal to the MCP joint on his left hand. It crushed his fingers underneath, and he was able to get it off momentarily after the initial injury. He is coming for further assessment. He admits to pain at the base of his fingers on the left hand, he denies any new numbness or tingling. He denies any injury to any other areas. He did not hit his head, the rest of his arm, or any other extremities. Tetanus was updated 9 years ago. No other complaints at this time. Left hand demonstrates a 1.5 cm laceration at the proximal phalanx on the palmar aspect of the middle finger, small superficial excoriation at the MCP joint of the ring finger on the palmar side, and a small 7 to 8 mm laceration over the palmar aspect at the MCP joint on the fifth digit. Notable bony tenderness over these areas. However the patient does demonstrate excellent flexion and extension, albeit slightly limited secondary to pain. Normal neurovascular exam. Symptoms are concerning for laceration, with potential bony fracture or injury. Will get x-rays to rule out fracture, will apply let for pain control, will give max dose Tylenol and Motrin, and plan for laceration repair. We will update the patient's tetanus. 11 AM There is evidence of a notable fracture of the fifth digit, questionable small fracture fragment the proximal fourth and questionable small fracture fragment distally in the proximal third phalanx. Patient's lacerations were sutured, middle finger required 5 simple interrupted sutures, ring finger required 2, and fifth digit required 2. There are few abrasions which are dermabonded. The whole hand was cleaned. Patient tolerated this well. On reassessment of the patient's fifth digit there is not a severe amount of rotational deformity on flexion. He does have some mild pain with flexion but is able to flex at the MCP, PIP and DIP joints. Sensation remains intact. Finger was splinted. Because of the nature of the fracture, we will place referral for outpatient nonemergent orthopedic evaluation as this is his dominant hand and he does require significant regular use of his hand. Patient's pain is otherwise well-controlled. Tetanus was updated. Because of the open fracture for his fifth digit we will start him on Keflex. Bottle was given here and a prescription was sent to his pharmacy. Patient otherwise stable. Discussed red flags which return. I have extensively reviewed the treatment plan and discharge instructions with the patient. I have addressed all patient concerns at this time. The patient was made aware of what symptoms to monitor for that would warrant a return to the emergency department. Discussed the plan with the patient, they demonstrate verbal understanding and agreement with our assessment and plan at this time. The documentation in this chart was dictated using [employer] dictation software. Please excuse any dictation errors. FINDINGS: Exam mildly limited by overlying gauze. BONES: Fracture stent extending transversely through the proximal 3rd of the proximal phalanx. It shows mild medial displacement and dorsal angulation. Small fracture fragment noted at the mid 4th proximal phalanx. Tiny fracture fragment versus overlying material noted distally at the 3rd proximal phalanx. No bony destructive lesion is seen. JOINTS: No dislocation present. SOFT TISSUE: Soft tissue laceration and air. IMPRESSION: Fracture of the proximal phalanx of the 5th finger. Small fracture fragment from the 4th proximal phalanx. Question of tiny fracture fragment distally at the 3rd proximal phalanx. Extensive soft tissue injury. Quality:SDOH Health Related Social Needs: No Data to Display PFSH All Active Problems (Updated 01/04/24 @ 11:17 by Patricio Watkins DO) Open displaced fracture of distal phalanx of little finger (Acute) Laceration of finger of left hand (Acute) Laceration of left lower extremity (Acute) Laceration of right wrist (Acute) Marijuana use (Acute) Smokes tobacco daily (Acute) Left inguinal hernia (Acute) Medical History Bilateral inguinal hernia Surgical History H/O wisdom tooth extraction Hx of hand surgery left finger cut down to bone; repaired S/P appendectomy Family History Mother Nephritis with Urolithiasis Social History Smoking/Tobacco Use Status: Current every day Tobacco Type: cigarettes Tobacco: How many years used: 5 Smoking risk assessment performed?: Yes Alcohol Intake: current Alcohol Intake frequency: a few times a month Alcohol type: beer Drug use: Daily Substance use type: marijuana Housing: apartment Do you feel safe at home: Yes Do you feel safe in your relationship?: Yes
[2024-01-04] MEDS: Lidocaine/Epinephri/Tetracaine Topical Gel 9 ML TP (09:55)
[2024-01-04] MEDS: Ibuprofen 800 MG TAB PO (09:58)
[2024-01-04] MEDS: Acetaminophen 500 MG TAB 1000 MG PO (09:58)
[2024-01-04] MEDS: Cephalexin 500 MG CAP, 4 CAPS/BTL PO (11:21)
[2024-01-04] MEDS: Lidocaine/Epinephri/Tetracaine Topical Gel 3 ML (11:25)
--- NOTE | 2024-01-04 11:40 | DI.VRAD_ITS ---
PROCEDURE INFORMATION: Exam: XR Left Hand Exam date and time: 01/04/2024 10:04 AM Age: 28 years old Clinical indication: Other: Large stone crushed prox. Fingers, eval for FX TECHNIQUE: Imaging protocol: Radiologic exam of the left hand. Views: 3 or more views. COMPARISON: No relevant prior studies available. FINDINGS: Bones/joints: There is a transverse medially displaced fracture of the shaft proximal phalanx of the small finger. No intra-articular extension. Soft tissues: Soft tissue emphysema surrounding the proximal aspect of the small finger. IMPRESSION: Transverse minimally displaced fracture of the proximal phalanx of the small finger with surrounding soft tissue emphysema, suggestive of open fracture. Dictated and Authenticated by: Roby Walker MD. Ordering:BIB Curry MD
--- NOTE | 2024-01-05 12:04 | NUR.NOTE ---
Nursing Note: Received call from patient that his prescription was sent to [facility] in [place], [place] and he needs it called into [facility] in [place]. Verbal order called into [facility] and pharmacy updated in chart.
== END 2024-01-04 11:35 | disposition home or self-care (01) ==
PROVIDERS: Emergency Provider Student in an Organized Health Care Education/Training Program; PCP Nurse Practitioner Family
DX: S62.647B Nondisplaced fracture of proximal phalanx of left little finger, initial encounter for open fracture (principal); S62.645B Nondisplaced fracture of proximal phalanx of left ring finger, initial encounter for open fracture; S62.643B Nondisplaced fracture of proximal phalanx of left middle finger, initial encounter for open fracture; Z23 Encounter for immunization; Y93.H3 Activity, building and construction; Y92.69 Other specified industrial and construction area as the place of occurrence of the external cause; Y99.0 Civilian activity done for income or pay; W23.0XXA Caught, crushed, jammed, or pinched between moving objects, initial encounter
CPT/HCPCS: 12002; 90471; 90715; 99284; 73130; 99283

== ENCOUNTER 2024-01-06 10:20 | PSDC | payer SELFPAY ==
[2024-01-06] VITALS (23 sets, daily range): BP systolic 118–141; BP diastolic 46–84; PULSE 40–70; RESP 4–18; TEMP 36.4–37.6; O2SAT 81–100; BMI 20.5
--- NOTE | 2024-01-06 11:02 | W.ANESPRE ---
General Info Date of Service Date Performed: 01/06/24 Height: 6 ft 3 in Weight: 74.4 kg Body Mass Index (BMI): 20.5 Surgical Procedure: Operation Date: 01/06/24 12:40 Proposed Procedure Side Surgeon p I & D Left Little Finger/ Percutaneous Pinning Left Bakari Krishna MD Meds Allergies and Home Medications Allergies Allergy/AdvReac Type Severity Reaction Status Date / Time peanut Allergy Severe Anaphylaxis Verified 01/06/24 10:56 Home Medication ?Medication ?Instructions ?Recorded epinephrine 0.3 mg/0.3 mL 0.3 mg (0.3 mL) IJ PRN PRN ##1 03/29/15 injection, auto-injector cephalexin 500 mg capsule 500 mg PO QID 7 days #28 caps 01/04/24 acetaminophen 500 mg tablet 1,000 mg (2 x 500 mg) PO Q8H PRN 01/06/24 pain #90 tabs hydrocodone 5 mg-acetaminophen 325 1 tab PO Q6H PRN severe pain #10 01/06/24 mg tablet tabs ibuprofen 600 mg tablet 600 mg PO TID PRN pain #60 tabs 01/06/24 Current Visit Medications: Current Medications Generic Name Dose Route Start Last Admin Trade Name Freq PRN Reason Stop Dose Admin Acetaminophen 1,000 mg 01/06/24 06:00 Acetaminophen 500 Mg Tab PO 01/06/24 23:59 PREOP CELIO Celecoxib 400 mg 01/06/24 06:00 Celecoxib 200 Mg Cap PO 01/06/24 23:59 PREOP [facility] Ringer's Solution 1,000 mls @ 80 mls/hr 01/06/24 06:00 IV 01/06/24 23:59 INFUSION [facility] IV Miscellaneous Supplies 1 each 01/06/24 06:00 Iv Access IV 01/06/24 23:59 DIRECTED CELIO Sodium Chloride 0 ml 01/06/24 06:00 Normal Saline Flush 10 Ml Syr IV 01/06/24 23:59 PRN PRN Sodium Chloride 0 ml 01/06/24 06:00 Normal Saline 10 Ml Vial IJ 01/06/24 23:59 DIRECTED PRN Sterile Water 0 ml 01/06/24 06:00 Water,Injection,Sterile 10 Ml Vial IJ 01/06/24 23:59 DIRECTED PRN PFSH Active Problems Active Problems: Problem Status Onset Code Open displaced fracture of proximal phalanx of left little finger Acute S62.617B Open displaced fracture of distal phalanx of little finger Acute S62.638B Laceration of finger of left hand Acute S61.219A Laceration of left lower extremity Acute S81.812A Laceration of right wrist Acute S61.511A Left groin pain Resolved R10.32 Marijuana use Acute F12.90 Smokes tobacco daily Acute F17.200 Left inguinal hernia Acute K40.90 Medical History Medical History Bilateral inguinal hernia Medical History Comments:: Daily marijauna use Surgical History Surgical History H/O wisdom tooth extraction Hx of hand surgery left finger cut down to bone; repaired S/P appendectomy Tobacco Smoking/Tobacco Use Status: Former Tobacco Use Alcohol Alcohol Intake: current Alcohol intake frequency: a few times a month Alcohol type: beer Substance Use Substance use: Daily Substance use type: marijuana Vital Signs and Lab Results Vital Signs Most Recent Vital Signs in EMR: Temp Pulse Resp BP Pulse Ox 36.4 C L 54 L 16 126/73 100 01/06/24 10:43 01/06/24 10:43 01/06/24 10:43 01/06/24 10:43 01/06/24 10:43 Lab Results Blood Type / Crossmatch: No Data to Display Complete Blood Count: No Data to Display Complete Metabolic Panel: No Data to Display Liver Function Panel: No Data to Display Coagulation Panel: No Data to Display Cardiac Panel: No Data to Display Arterial Blood Gas: No Data to Display Venous Blood Gas: No Data to Display Pancreas Panel: No Data to Display Thyroid Panel: No Data to Display Infectious Disease: No Data to Display Blood Cultures: No Data to Display Toxicology Panel: No Data to Display Anesthesia Assessment and Plan Anesthesia History Personal History: Awareness Under Anesthesia Family History: No Family History of Anesthesia Complications Exercise Tolerance Exercise Tolerance: Metabolic Equivalents>4 Cardiac & Pulmonary Exam Cardiac Exam: Normal S1/S2 Heart Sounds Pulmonary Exam: Clear Bilateral Breath Sounds Implantable Cardiac Device Does patient have a Pacemaker or an ICD?: No Airway Exam Known Difficult Airway: No Mallampati Class: 3 Mouth Opening: Narrow (< 3cm) Thyromental Distance: Greater than 3 cm Neck Range of Motion: Full ROM Neck Circumference: Normal Teeth Condition: Normal Dentition and Loose or Chipped (chipped fronts, and scattered chips. ) ASA Classification ASA Score: ASA 2 Emergency Case?: No NPO Status NPO Status: NPO Clears >2 hours, Solids >8 hours Anesthesia Plan Resuscitation Status: Full Code Anesthesia Technique: General Anesthesia Airway Planned: LMA Monitors Used: Standard Monitors Preoperative Comments:: 26 yo male for fracture repair. Sig PMHx: daily cannabis, previous facial fractures (no jaw, nose involvement per him, but right eye messed up due to it). former smoker Previous Anes: - Hernia repair, LMA 4, no issues.
[2024-01-06] MEDS: Normal Saline Flush 10 ML SYR IV (11:15)
--- NOTE | 2024-01-06 11:24 | W.PM.DSUDISC ---
Date of service: 01/06/24 Time of Service: 11:28 Discharge Plan Disposition Condition: Good Condition: Good Discharge Details Reason For Visit: Left index finger open displaced fracture Attending Provider: Bakari Krishna Primary Care Provider: Magdalene Enciso Home Meds and New Rx's Prescriptions: New hydrocodone-acetaminophen 5-325 mg tablet 1 tab PO Q6H PRN (Reason: severe pain) Qty: 10 0RF Rx Instructions: Take one tablet up to every 6 hours as needed for severe postoperative pain acetaminophen 500 mg tablet 1,000 mg PO Q8H PRN Qty: 90 0RF Rx Instructions: Take two tablets up to every 8 hours as needed for pain ibuprofen 600 mg tablet 600 mg PO TID PRN (Reason: pain) Qty: 60 0RF Continued epinephrine 0.3 MG/SYR auto-injector 0.3 mg IJ PRN PRNQty: 1 0RF cephalexin 500 mg capsule 500 mg PO QID 7 Days Qty: 28 0RF Discontinued acetaminophen 500 mg capsule 500 mg PO Q6H PRN Patient Comments: 1000mg Discharge Instructions Additional Instructions: Finger Fracture Fixation Discharge Instructions Activity: You should keep the hand/wrist elevated as much as possible for the first few days. You may use the other fingers as tolerated but avoid trying to do too much too soon. You may perform light activities with the splint in place. Dressing/Cast: Your splint should stay in place at all times. Do NOT get it wet. You may loosen the KAY wrap if you feel it is too tight and then rewrap more loosely. Medications: - You should take Tylenol and Ibuprofen for baseline pain control. - You have been prescribed a stronger pain medication, Hydrocodone, for breakthrough pain. - Continue with your antibiotic, Cephalexin, and finish full course. - You may apply ice over the wrist, just double bag so it doesn't get wet. Follow-up: 10-14 days Referrals: Bakari Krishna MD [ [facility] STAFF PHYSICIAN] - Equipment/Supplies: Splint Activity:: Elevate Remove Dressings/Wound Care:: Do Not Remove Shower/Bathe:: Cover Activity:: Activity as Tolerated Diet:: As Tolerated Discharge Orders Discharge Orders: Discharge Order (Routine); Ordered 01/06/24 Ordered By: Lorena Samuels
[2024-01-06] MEDS: Acetaminophen 500 MG TAB 1000 MG PO (11:56)
[2024-01-06] MEDS: Celecoxib 200 MG CAP 400 MG PO (11:56)
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
[2024-01-06] MEDS: Bupivacaine 0.5% Pres-Free 30 ML VIAL (13:14)
--- NOTE | 2024-01-06 13:30 | DI.RAD_ITS ---
Exam(s) XR HAND LT LIMITED EXAM: XR HAND LT LIMITED CLINICAL HISTORY: Open displaced fracture of distal phalanx of littl. TECHNIQUE: 2D and realtime digital imaging was performed. COMPARISON: CR,XR XR HAND LT COMPLETE from 01/04/2024 FINDINGS: Hard copy images show placement of 2 K-wires through the proximal phalanx of the 5th finger. The al ignment is anatomic. Please see procedure note for details. Fluoro time: 3 minutes 50 secondsseconds RADIATION DOSE DELIVERED: Kar=1.37 mGy
--- NOTE | 2024-01-06 14:39 | W.ANESPOSTOP ---
Postoperative Evaluation Date, Time and Location Date Performed: 01/06/24 Time Performed: 14:40 Patient Location: Day Surgery Unit Vital Signs Most Recent Imported Vital Signs: Most Recent Vital Signs Temp Pulse Resp BP Pulse Ox 36.5 C 63 16 121/75 100 01/06/24 14:19 01/06/24 14:19 01/06/24 14:19 01/06/24 14:19 01/06/24 14:19 Pain Score Most Recent Pain Score: Most Recent Pain Score Pain Level 0 01/06/24 14:19 Assessment Mental Status: Awake (Alert & Oriented to Patient Baseline) Airway and Respiratory Function: Patent airway with normal (patient baseline) respiratory exam Cardiovascular Function: Hemodynamically Stable Hydration Status: Adequately Hydrated Nausea & Vomiting: No Nausea or Vomiting Pain: Pt. Denies Any Pain Peripheral Nerve Block: Patient did not receive a nerve block
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
== END 2024-01-06 15:17 | disposition home or self-care (01) ==
PROVIDERS: PCP Nurse Practitioner Family; Visit Provider Student in an Organized Health Care Education/Training Program
PROC: (CPT 26727; principal; 2024-01-06 12:30)
DX: S62.617B Displaced fracture of proximal phalanx of left little finger, initial encounter for open fracture (principal); W23.1XXA Caught, crushed, jammed, or pinched between stationary objects, initial encounter; Y93.89 Activity, other specified; Y99.0 Civilian activity done for income or pay
CPT/HCPCS: 26727; 11010; 76000; 73120; J0665; J0690; J1100; J2250; J2405; J2704

== ENCOUNTER 2024-01-10 12:36 | Emergency (ER) | payer SELFPAY ==
[2024-01-10 12:43] VITALS: BP 102/59; PULSE 91; RESP 16; TEMP 36.3; O2SAT 98
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
== END 2024-01-10 13:29 | disposition home or self-care (01) ==
PROVIDERS: Emergency Provider Emergency Medicine; PCP Nurse Practitioner Family
DX: G89.18 Other acute postprocedural pain (principal)
CPT/HCPCS: 99282

== ENCOUNTER 2024-01-19 15:49 | Outpatient (CLI) | payer SELFPAY ==
--- NOTE | 2024-01-19 11:11 | DI.RAD_ITS ---
Exam(s) XR FINGER LT LITTLE EXAM: XR FINGER LT LITTLE INDICATION: S/P PINNING. COMPARISON: CR XR HAND LT LIMITED from 01/06/2024 TECHNIQUE: 2D digital imaging was performed. Two views. FINDINGS: Two pins are again noted through the proximal phalanx for fracture fixation. Stable fracture alignme nt. DATA REPOSITORY: RADIATION DOSE DELIVERED:
== END 2024-01-19 15:50 | disposition home or self-care (01) ==
LOC: DIORS 15:58
PROVIDERS: PCP Nurse Practitioner Family; Visit Provider Student in an Organized Health Care Education/Training Program
DX: S62.617D Displaced fracture of proximal phalanx of left little finger, subsequent encounter for fracture with routine healing (principal); X58.XXXD Exposure to other specified factors, subsequent encounter
CPT/HCPCS: 73140

== ENCOUNTER 2024-02-02 16:01 | Outpatient (CLI) | payer SELFPAY ==
--- NOTE | 2024-02-02 11:15 | DI.RAD_ITS ---
Exam(s) XR FINGER LT LITTLE EXAM: XR FINGER LT LITTLE CLINICAL HISTORY: F/U FRACTURE. TECHNIQUE: 2D digital imaging was performed. Three views. COMPARISON: 19 January 2024 FINDINGS: BONES: [address] across the proximal phalangeal fracture. There has been increased heal ing. No change in alignment. No bony destructive lesion is seen. JOINTS: No dislocation present. SOFT TISSUE: Normal. IMPRESSION: Stable fracture alignment. DATA REPOSITORY: RADIATION DOSE DELIVERED:
== END 2024-02-02 16:02 | disposition home or self-care (01) ==
LOC: DIORS 16:01
PROVIDERS: PCP Nurse Practitioner Family; Visit Provider Student in an Organized Health Care Education/Training Program
DX: S62.617D Displaced fracture of proximal phalanx of left little finger, subsequent encounter for fracture with routine healing (principal); X58.XXXD Exposure to other specified factors, subsequent encounter
CPT/HCPCS: 73140